=== PATIENT | male | born 1995 | race Caucasian/White ===

== ENCOUNTER 2017-09-13 14:29 | Emergency (ER) | payer OTHER ==
[2017-09-13 15:12] VITALS: BP 133/63; PULSE 92; RESP 22; TEMP 98.6; O2SAT 100
--- NOTE | 2017-09-13 15:40 | RADRPT ---
EXAM DATE/TIME: 09/13/2017 15:33 [place] COMPARISON: No previous studies available for comparison. INDICATIONS : Sudden onset severe headache. RADIATION DOSE: 49.94 CTDIvol (mGy) MEDICAL HISTORY : None SURGICAL HISTORY : None. ENCOUNTER: Initial ACUITY: 1 day PAIN SCALE: 7/10 LOCATION: Bilateral cranial TECHNIQUE: Multiple contiguous axial images were obtained of the head. Using automated exposure control and adj ustment of the mA and/or kV according to patient size, radiation dose was kept as low as reasonably a chievable to obtain optimal diagnostic quality images. DICOM format image data is available electro nically for review and comparison. FINDINGS: The ventricles are symmetric and normal in appearance. No abnormal extra-axial fluid collections are identified. There is no evidence of intracranial hemorrhage or mass. There is nothing to suggest acut e infarction. There is mucosal disease present in the visualized left maxillary sinus. Extracranial structures are otherwise grossly unremarkable. CONCLUSION: No acute intracranial findings. Left maxillary sinusitis Maciej Talamantes MD on September 13, 2017 at 15:36 Board Certified Radiologist. This report was verified electronically.
[2017-09-13 19:11] VITALS: BP 117/75; PULSE 77; RESP 14; O2SAT 100
--- NOTE | 2017-09-13 19:38 | PD ---
HPI Chief Complaint: Medical Clearance Time Seen by Provider: 19:19 Travel History International Travel<30 days: No Contact w/Intl Traveler<30days: No Traveled to known affect area: No History of Present Illness HPI 22-year-old white male presents emergency department for evaluation of near syncope. The patient states that while at work today he had become hot all over. He felt lightheaded and dizzy. He felt as if he may pass out. 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 He states that he had sat down and his symptoms did seem to improve but returned only a few minutes later. He denied any associated nausea vomiting. No diaphoresis. He does report having some mild chest discomfort and feeling as if he cannot catch his breath. Patient felt as if he may be having a mild anxiety attack. Patient presented to the ER for evaluation. He once again stated that his symptoms had improved but on presentation he felt anxious again and felt as if he could not catch his breath. He denied any trauma. No recent illness. He denies any history of syncope or presyncope in the past. He denies any history of anxiety. He denies any hypertension, diabetes or heart disease. Mother has a family history of COPD. No history of heart disease in the family or syncope. No sudden . Patient does smoke cigarettes and drink alcohol. Denies any drugs. PFSH Past Medical History Medical History: Denies Significant Hx Diminished Hearing: No Tetanus Vaccination: > 5 Years Influenza Vaccination: No Past Surgical History Surgical History: No Previous Surgery Social History Alcohol Use: Yes (occasionally) Tobacco Use: Yes Substance Use: No Allergies-Medications (Allergen,Severity, Reaction): Coded Allergies: No Known Allergies (Unverified , 09/13/17) Reported Meds & Prescriptions Reported Meds & Active Scripts Active No Active Prescriptions or Reported Medications Review of Systems Except as stated in HPI: all other systems reviewed are Neg Physical Exam Narrative GENERAL: Well-developed, well-nourished in no apparent distress. Nontoxic appearing. HEAD: Normocephalic, atraumatic. EYES: Pupils equal round and reactive. Extraocular motions intact. No scleral icterus. No injection or drainage. ENT: Nose clear. Throat without erythema, tonsillar hypertrophy or exudate. Uvula midline. Airway patent. NECK: Trachea midline. Supple, nontender, moves head freely. No central bony tenderness or spasm. CARDIOVASCULAR: Regular rate and rhythm without murmurs, gallops, or rubs. RESPIRATORY: Clear to auscultation. Breath sounds equal bilaterally. No wheezes , rales, or rhonchi. GASTROINTESTINAL: Abdomen soft, non-tender, nondistended. No hepato-splenomegaly , or palpable masses. No guarding. EXTREMITIES: No clubbing, cyanosis, or edema. No joint tenderness. BACK: Nontender without deformity. No flank tenderness. NEUROLOGICAL: Awake, alert and oriented x 3 .Cranial nerves grossly intact. Motor and sensory grossly within normal limits. Normal speech. Data Data Last Documented VS Vital Signs Date Time Temp Pulse Resp B/P (MAP) Pulse Ox O2 Delivery O2 Flow Rate FiO2 09/13/17 19:11 77 14 117/75 (89) 100 Room Air 09/13/17 15:[address] Brain W/O Iv Contrast(Rout) (09/13/17 ) Electrocardiogram (09/13/17 19:27) Complete Blood Count With Diff (09/13/17 19:27) Basic Metabolic Panel (Bmp) (09/13/17 19:27) Drug Screen, Random Urine (09/13/17 19:27) Ed Discharge Order (09/13/17 21:00) Labs Laboratory Tests Test 09/13/17 20:00 White Blood Count 14.3 TH/MM3 Red Blood Count 4.54 MIL/MM3 Hemoglobin 13.9 GM/DL Hematocrit 40.5 % Mean Corpuscular Volume 89.3 FL Mean Corpuscular Hemoglobin 30.6 PG Mean Corpuscular Hemoglobin Concent 34.3 % Red Cell Distribution Width 12.8 % Platelet Count 302 TH/MM3 Mean Platelet Volume 6.9 FL Neutrophils (%) (Auto) 78.0 % Lymphocytes (%) (Auto) 12.8 % Monocytes (%) (Auto) 8.5 % Eosinophils (%) (Auto) 0.3 % Basophils (%) (Auto) 0.4 % Neutrophils # (Auto) 11.1 TH/MM3 Lymphocytes # (Auto) 1.8 TH/MM3 Monocytes # (Auto) 1.2 TH/MM3 Eosinophils # (Auto) 0.0 TH/MM3 Basophils # (Auto) 0.1 TH/MM3 CBC Comment DIFF FINAL Differential Comment Blood Urea Nitrogen 9 MG/DL Creatinine 0.93 MG/DL Random Glucose 87 MG/DL Calcium Level 9.1 MG/DL Sodium Level 138 MEQ/L Potassium Level 3.9 MEQ/L Chloride Level 102 MEQ/L Carbon Dioxide Level 26.4 MEQ/L Anion Gap 10 MEQ/L Estimat Glomerular Filtration Rate 104 ML/MIN Urine Opiates Screen NEG Urine Barbiturates Screen NEG Urine Amphetamines Screen NEG Urine Benzodiazepines Screen NEG Urine Cocaine Screen NEG Urine Cannabinoids Screen NEG MDM Medical Decision Making Medical Screen Exam Complete: Yes Emergency Medical Condition: Yes Medical Record Reviewed: Yes Interpretation(s) EKG: Sinus rhythm with a ventricular rate of 73. [place] 97 slight right deviation. No abnormal ST-T wave changes. Laboratory Tests Test 09/13/17 20:00 White Blood Count 14.3 TH/MM3 Red Blood Count 4.54 MIL/MM3 Hemoglobin 13.9 GM/DL Hematocrit 40.5 % Mean Corpuscular Volume 89.3 FL Mean Corpuscular Hemoglobin 30.6 PG Mean Corpuscular Hemoglobin Concent 34.3 % Red Cell Distribution Width 12.8 % Platelet Count 302 TH/MM3 Mean Platelet Volume 6.9 FL Neutrophils (%) (Auto) 78.0 % Lymphocytes (%) (Auto) 12.8 % Monocytes (%) (Auto) 8.5 % Eosinophils (%) (Auto) 0.3 % Basophils (%) (Auto) 0.4 % Neutrophils # (Auto) 11.1 TH/MM3 Lymphocytes # (Auto) 1.8 TH/MM3 Monocytes # (Auto) 1.2 TH/MM3 Eosinophils # (Auto) 0.0 TH/MM3 Basophils # (Auto) 0.1 TH/MM3 CBC Comment DIFF FINAL Differential Comment Blood Urea Nitrogen 9 MG/DL Creatinine 0.93 MG/DL Random Glucose 87 MG/DL Calcium Level 9.1 MG/DL Sodium Level 138 MEQ/L Potassium Level 3.9 MEQ/L Chloride Level 102 MEQ/L Carbon Dioxide Level 26.4 MEQ/L Anion Gap 10 MEQ/L Estimat Glomerular Filtration Rate 104 ML/MIN Urine Opiates Screen NEG Urine Barbiturates Screen NEG Urine Amphetamines Screen NEG Urine Benzodiazepines Screen NEG Urine Cocaine Screen NEG Urine Cannabinoids Screen NEG Last [address] 09/13/17 0000 Signed Impressions: Service Date/Time: Wednesday, September 13, 2017 15:33 - CONCLUSION: No acute intracranial findings. Left maxillary sinusitis Maciej Talamantes MD Differential Diagnosis Differential diagnosis: Arrhythmia, electrolyte abnormality, syncope, near syncope, vasovagal Narrative Course Patient sounds as if he had a vasovagal near syncopal events. His evaluation today is very reassuring. EKG, CT and laboratory tests are unremarkable. Patient is advised to follow-up with the [place] [facility] and is stable for discharge. Diagnosis Primary Impression: Vasovagal near syncope Referrals: [facility] 2 days Patient Instructions: General Instructions Departure Forms: Tests/Procedures, Work Release Special Instructions: No work 2 days. Additional Instructions: Rest. Increase fluids. Avoid any stressors. No work for the next 2 days. Follow-up with the [place] [facility] in 2 days. Return to the ER if symptoms worsen or problems develop. Med/Other Pt SpecificInfo: No Meds Exist/No RX given Scripts No Active Prescriptions or Reported Meds Disposition: 01 DISCHARGE HOME Condition: Stable Andrey Diaz Sep 13, 2017 19:38
[2017-09-13 20:44] LABS: AUTOMATED NEUTROPHIL # 11.1 TH/MM3 (1.8-7.7); BASOPHIL # 0.1 TH/MM3 (0-0.2); BASOPHIL % 0.4 % (0.0-2.0); EOSINOPHIL % 0.3 % (0.0-4.0); HEMATOCRIT 40.5 % (39.0-51.0); HEMOGLOBIN 13.9 GM/DL (13.0-17.0); LYMPH % 12.8 % (9.0-44.0); LYMPHOCYTE # 1.8 TH/MM3 (1.0-4.8); MEAN CELL VOLUME 89.3 FL (80.0-100.0); MEAN CORPUSCULAR HEMOGLOBIN 30.6 PG (27.0-34.0); MEAN CORPUSCULAR HGB CONC 34.3 % (32.0-36.0); MEAN PLATELET VOLUME 6.9 FL (7.0-11.0); MONO % 8.5 % (0.0-8.0); MONOCYTE # 1.2 TH/MM3 (0-0.9); PLATELET COUNT 302 TH/MM3 (150-450); RED BLOOD COUNT 4.54 MIL/MM3 (4.50-5.90); RED CELL DISTRIBUTION WIDTH 12.8 % (11.6-17.2); WHITE BLOOD COUNT 14.3 TH/MM3 (4.0-11.0)
[2017-09-13 20:57] LABS: BICARBONATE 26.4 MEQ/L (21.0-32.0); CALCIUM 9.1 MG/DL (8.5-10.1); CREATININE 0.93 MG/DL (0.60-1.30)
--- NOTE | 2017-09-14 14:18 | EKG ---
Date Performed: 09/13/2017 Time Performed: 20:32:57 PTAGE: 22 years EKG: Sinus rhythm WITH SINUS ARRHYTHMIA BORDERLINE RIGHT AXIS DEVIATION BORDERLINE ECG NO PREVIOUS TRACING DOCTOR: Nicolas Birch Interpretating Date/Time 09/14/2017 14:17:01
== END 2017-09-13 21:30 | disposition home or self-care (01) ==
LOC: NEPD 14:29
DX: R55 Syncope and collapse (principal); R07.89 Other chest pain; R94.31 Abnormal electrocardiogram [ECG] [EKG]; Z72.0 Tobacco use
CPT/HCPCS: 70450; 80048; 80307; 85025; 93005; 99285